=== PATIENT | female | born 1995 | race African-American/Black ===

== ENCOUNTER 2017-03-28 | Emergency (ER) | payer OTHER ==
[~2017-03-28] VITALS: Ht 160 cm; Wt 73.8 kg
[~2017-03-28] MED LIST: Children's Advil Sus PO; FLAGYL250 MG PO; KEFLEX500 MG PO; MOTRIN600 MG PO; ZOFRAN4 MG PO
[2017-03-28 00:48] LABS: BASOPHIL (%) 0.4 % (0-1); EOSINOPHIL (%) 1.2 % (0-5); EOSINOPHIL COUNT 0.1 K/uL (0-0.3); HEMATOCRIT 44.9 % (36.0-46.0); HEMOGLOBIN 15.6 G/DL (11.9-15.5); IMMATURE GRANULOCYTE (%) 0.4 % (0.0-0.7); LYMPHOCYTE COUNT 2.3 K/uL (1.0-2.8); MCH 29.2 PG (29.0-34.0); MCHC 34.7 G/DL (30.0-36.0); MCV 84.1 FL (83-99); MONOCYTE (%) 5.3 % (3-12); MONOCYTE COUNT 0.4 K/uL (0-0.8); NEUTROPHIL (%) 61.7 % (45-76); NEUTROPHIL COUNT 4.6 K/uL (1.8-6.4); PLATELET COUNT 405 K/uL (156-360); RBC DIS.WIDTH-CV 12.3 % (11.8-14.6); RBC DIS.WIDTH-SD 37.3 % (39-53); RED BLOOD COUNT 5.34 M/uL (3.80-5.20); WHITE BLOOD COUNT 7.5 K/uL (4.1-10.2)
[2017-03-28 01:02] LABS: CHLORIDE 104 mEq/L (99-109); POTASSIUM 3.8 mEq/L (3.7-5.4); SODIUM 138 mEq/L (136-147)
[2017-03-28 01:04] LABS: GLUCOSE 84 mg/dL (70-99)
[2017-03-28 01:08] LABS: CREATININE 0.7 mg/dL (0.6-1.3); GFR ESTIMATE (CALCULATED) > 59 mL/min/
[2017-03-28 01:09] LABS: UREA NITROGEN (BUN) 15 mg/dL (9-23)
[2017-03-28 01:15] LABS: TROP-I INTERPRETATION NEGATIVE; TROPONIN-I < 0.01 ng/mL (0.0-0.30)
[2017-03-28 03:08] VITALS: BP 123/86
[2017-03-28 08:12] LABS: THYROTROPIN (TSH) 1.1 MIU/L (0.4-5.5)
== END 2017-03-28 03:10 | disposition home or self-care (01) ==
LOC: EME
PROVIDERS: Emergency Medicine
DX: F41.9 Anxiety disorder, unspecified (principal)
CPT/HCPCS: 71046; 80048; 84443; 84484; 85025; 93005; 99281; 99284

== ENCOUNTER 2017-08-09 22:48 | Emergency (ER) | payer OTHER ==
[~2017-08-09] VITALS: Ht 162.6 cm; Wt 76.6 kg
[2017-08-09 23:31] LABS: APPEARANCE SL.HAZY ((CLEAR)); BILIRUBIN NEGATIVE; BLOOD NEGATIVE; COLOR YELLOW ((YELLOW)); GLUCOSE (STRIP) NEGATIVE; KETONES NEGATIVE; LEUKOCYTES MODERATE; NITRITE NEGATIVE; PROTEIN (STRIP) NEGATIVE; SPECIFIC GRAVITY 1.026 (1.000-1.030); UROBILINOGEN 0.2 MG/DL (0.2-1.0)
[2017-08-09 23:37] LABS: BACTERIA RARE /HPF; EPITHELIAL CELLS 2+ /HPF; MUCUS TRACE /LPF; RED BLOOD CELLS 0-5 /HPF (0-5); UCUL ADDED? NO; WHITE BLOOD CELLS 0-5 /HPF (0-5)
[2017-08-09 23:47] LABS: HEMATOCRIT 38.6 % (36.0-46.0); HEMOGLOBIN 13.6 G/DL (11.9-15.5); MCH 29.9 PG (29.0-34.0); MCHC 35.2 G/DL (30.0-36.0); MCV 84.8 FL (83-99); PLATELET COUNT 368 K/uL (156-360); RBC DIS.WIDTH-SD 36.8 % (39-53); RED BLOOD COUNT 4.55 M/uL (3.80-5.20); WHITE BLOOD COUNT 10.8 K/uL (4.1-10.2)
[2017-08-09 23:59] LABS: CHLORIDE 106 mEq/L (99-109); SODIUM 139 mEq/L (136-147)
[2017-08-10 00:01] LABS: GLUCOSE 83 mg/dL (70-99); TOTAL PROTEIN 6.9 g/dL (6.4-8.3)
[2017-08-10 00:03] LABS: TOTAL BILIRUBIN 0.3 mg/dL (0.0-1.0)
[2017-08-10 00:05] LABS: ALKALINE PHOSPHATASE 88 IU/L (3-129); CREATININE 0.8 mg/dL (0.6-1.3); GFR ESTIMATE (CALCULATED) > 59 mL/min/
[2017-08-10 00:06] LABS: AST (GOT) 17 IU/L (2-34); UREA NITROGEN (BUN) 15 mg/dL (9-23)
[2017-08-10 00:08] LABS: ALT (GPT) 23 IU/L (3-49)
[2017-08-10 00:16] LABS: QUANTITATIVE HCG < 4.0 MIU/ML
[2017-08-10 00:47] LABS: SOURCE SWAB
[2017-08-10 01:08] VITALS: BP 116/94
[2017-08-10] MEDS ORDERED: FLAGYL500 MG PO (04:01)
== END 2017-08-10 01:08 | disposition home or self-care (01) ==
LOC: EME 22:48
PROVIDERS: Physician Assistant Medical
DX: A59.09 Other urogenital trichomoniasis (principal); G43.909 Migraine, unspecified, not intractable, without status migrainosus; F17.200 Nicotine dependence, unspecified, uncomplicated
CPT/HCPCS: 80053; 81003; 81025; 84702; 85027; 87210; 87491; 87591; 99281; 99283; J0696